=== PATIENT | female | born 1935 | race Caucasian/White ===

== ENCOUNTER 2016-08-01 13:41 | Inpatient (IN) | payer MEDICARE, OTHER ==
[~2016-08-01] VITALS: Ht 142.2 cm; Wt 62.1 kg
[~2016-08-01 13:41] MED LIST: HYDR-3138 PO; HYDR-3240 PO; HYDR-882 PO; HYDR25TA6 PO; LORA0.5T PO; OMEP-110 PO; OXYC-302 PO; TIZA4TAB9 PO; will bring a list
[2016-08-01] MEDS ORDERED: SODIUM CHLORIDE 0.9% 1,000 ML IV ONE (13:46)
[2016-08-01] MEDS ORDERED: HYDROmorphone 1 MG/ML, 1ML ONE ×2 (13:55→14:33)
[2016-08-01] MEDS ORDERED: ONDANSETRON 2MG/ML, 2ML ONE (13:55)
[2016-08-01] MEDS: HYDROmorphone 1 MG/ML, 1ML IVPush PRN ×2 (13:59→14:35)
[2016-08-01] MEDS ORDERED: SODIUM CHLORIDE FLUSH 10ML SYR IVF ONE (14:00)
[2016-08-01] MEDS ORDERED: ONDANSETRON 2MG/ML, 2ML IVPush ONE (14:00)
[2016-08-01 14:28] LABS: BLOOD UREA NITROGEN 20 mg/dL (7-18)
[2016-08-01 14:32] LABS: ASPARTATE AMINO TRANSFERASE 19 U/L (15-37)
[2016-08-01] MEDS ORDERED: ONDANSETRON 2MG/ML, 2ML IVPush PRN (16:00)
[2016-08-01] MEDS ORDERED: ENALAPRILAT 1.25 MG/ML, 2ML IVPush PRN (16:00)
[2016-08-01] MEDS: morphine SULFATE 10 MG/ML, 1ML IVPush PRN ×2 (17:18→21:15)
[2016-08-01] MEDS: LACTATED RINGERS 1,000 ML IV SCH (17:19)
[2016-08-01 18:07] VITALS: BP 186/85
[2016-08-01 18:20] VITALS: BP 145/78
[2016-08-01 19:01] VITALS: BP 151/78
[2016-08-01] MEDS: FAMOTIDINE 20 MG/2 ML IVPush SCH (21:00)
[2016-08-02 00:20] VITALS: BP 152/96
[2016-08-02] MEDS: morphine SULFATE 10 MG/ML, 1ML IVPush PRN ×3 (01:00→05:10)
[2016-08-02] MEDS: LACTATED RINGERS 1,000 ML IV SCH (02:53)
[2016-08-02 05:50] LABS: BLOOD UREA NITROGEN 15 mg/dL (7-18)
[2016-08-02] MEDS ORDERED: FENTANYL PF 250 MCG/5ML ONE (07:34)
[2016-08-02] MEDS ORDERED: MIDAZOLAM 1 MG/ML, 2ML ONE (07:34)
[2016-08-02] MEDS ORDERED: PROPOFOL 10 MG/ML, 20ML ONE (08:04)
[2016-08-02] MEDS ORDERED: EPHEDRINE 50 MG/ML, 1ML ONE (08:04)
[2016-08-02] MEDS ORDERED: DEXAMETHASONE 4 MG/ML, 1ML ONE (08:04)
[2016-08-02] MEDS ORDERED: ONDANSETRON 2MG/ML, 2ML ONE (08:04)
[2016-08-02] MEDS ORDERED: hydrALAzine 20 MG/ML, 1ML IV PRN (09:00)
[2016-08-02] MEDS ORDERED: ACETAMINOPHEN 325 MG TABLET PO PRN (09:00)
[2016-08-02] MEDS ORDERED: EPHEDRINE 50 MG/ML, 1ML IVPush PRN (09:00)
[2016-08-02] MEDS ORDERED: ONDANSETRON 2MG/ML, 2ML IVPush PRN (09:00)
[2016-08-02] MEDS ORDERED: PROMETHAZINE 25 MG/ML, 1ML IV PRN (09:00)
[2016-08-02] MEDS ORDERED: FENTANYL PF 100 MCG/2ML IV PRN (09:00)
[2016-08-02] MEDS ORDERED: HYDROmorphone 1 MG/ML, 1ML IV PRN (09:00)
[2016-08-02] MEDS ORDERED: ALBUTEROL SULFATE 2.5 MG/3 ML NPPB PRN (09:00)
[2016-08-02] MEDS ORDERED: MEPERIDINE/PF 25MG/0.5ML IVPush PRN (09:00)
[2016-08-02] MEDS ORDERED: OXYcodone 5 MG/5 ML ORAL.SOL UDC PO PRN (09:00)
[2016-08-02] MEDS: FAMOTIDINE 20 MG/2 ML IVPush SCH ×2 (09:00→20:59)
[2016-08-02] MEDS ORDERED: METOPROLOL 1 MG/ML, 5ML IV PRN (09:00)
[2016-08-02] MEDS ORDERED: MIDAZOLAM 1 MG/ML, 2ML IV PRN (09:00)
[2016-08-02] MEDS ORDERED: LABETALOL 5MG/ML, 20ML IV PRN (09:00)
[2016-08-02] MEDS ORDERED: OXYcodone 5 MG/5 ML ORAL.SOL UDC ONE (09:08)
[2016-08-02] MEDS ORDERED: ACETAMINOPHEN 650 MG/20.3 ML UDC ONE (09:08)
[2016-08-02] MEDS ORDERED: FENTANYL PF 100 MCG/2ML ONE (09:13)
[2016-08-02] MEDS ORDERED: POTASSIUM CHLORIDE 20 MEQ TAB.ER.PRT PO ONE (11:00)
[2016-08-02 13:45] VITALS: BP 98/54
[2016-08-02 14:24] VITALS: BP 101/74
[2016-08-02] MEDS: HYDROcodone/APAP 5/325 TABLET PO PRN ×2 (16:30→23:07)
[2016-08-02 16:32] VITALS: BP 154/93
[2016-08-02] MEDS: CEFAZOLIN PMX 1GM/50ML 50 ML IV SCH (17:01)
[2016-08-02 18:51] VITALS: BP 130/75
[2016-08-03] MEDS: CEFAZOLIN PMX 1GM/50ML 50 ML IV SCH ×2 (00:25→08:31)
[2016-08-03 00:28] VITALS: BP 133/74
[2016-08-03] MEDS: ENOXAPARIN 40 MG/0.4 ML SQ SCH (05:34)
[2016-08-03 06:04] LABS: BLOOD UREA NITROGEN 11 mg/dL (7-18)
[2016-08-03 06:38] VITALS: BP 138/70
[2016-08-03] MEDS: FAMOTIDINE 20 MG TABLET PO SCH ×2 (09:00→19:58)
[2016-08-03] MEDS: HYDROcodone/APAP 5/325 TABLET PO PRN ×2 (10:17→14:54)
[2016-08-03 14:25] VITALS: BP 124/60
[2016-08-03 18:32] VITALS: BP 133/93
[2016-08-03] MEDS: LORazepam 2 MG/ML, 1ML IVPush PRN (19:57)
[2016-08-04] MEDS: LORazepam 2 MG/ML, 1ML IVPush PRN ×2 (01:14→06:11)
[2016-08-04 01:19] VITALS: BP 154/94
[2016-08-04] MEDS: morphine SULFATE 10 MG/ML, 1ML IVPush PRN (01:22)
[2016-08-04] MEDS: ENOXAPARIN 40 MG/0.4 ML SQ SCH (06:14)
[2016-08-04 06:36] VITALS: BP 149/98
[2016-08-04] MEDS: FAMOTIDINE 20 MG TABLET PO SCH (09:00)
[2016-08-04] MEDS ORDERED: ENOX40SY4 SQ (10:10)
[2016-08-04] MEDS ORDERED: HYDR-3240 PO (10:10)
[2016-08-04] MEDS ORDERED: TRAM50TA2 PO (10:10)
[2016-08-04] MEDS ORDERED: FAMO20TA7 PO (10:10)
[2016-08-04] MEDS ORDERED: LACTULOSE 20 GM/30 ML UDC PO PRN (11:00)
[2016-08-04 13:42] VITALS: BP 115/74
[2016-08-04 16:14] VITALS: BP 166/99
== END 2016-08-04 16:18 | DRG 482 ==
LOC: ED 15:34 → 4NOR 15:35 → ED 16:05 → 4NOR 08-03 20:03
PROVIDERS: ADMIT Hospitalist; ATTEND Hospitalist
PROC: 0T9B70Z Drainage of Bladder with Drainage Device, Via Natural or Artificial Opening (ICD-10-PCS; 2016-08-02)
PROC: 0QS736Z Reposition Left Upper Femur with Intramedullary Internal Fixation Device, Percutaneous Approach (ICD-10-PCS; principal; 2016-08-02 07:30)
DX: S72.142A Displaced intertrochanteric fracture of left femur, initial encounter for closed fracture (principal); I10 Essential (primary) hypertension; D64.9 Anemia, unspecified; E87.6 Hypokalemia; F17.200 Nicotine dependence, unspecified, uncomplicated; F41.9 Anxiety disorder, unspecified; M51.36 Other intervertebral disc degeneration, lumbar region; W01.0XXA Fall on same level from slipping, tripping and stumbling without subsequent striking against object, initial encounter; Y93.89 Activity, other specified; Y92.89 Other specified places as the place of occurrence of the external cause; Z82.49 Family history of ischemic heart disease and other diseases of the circulatory system; Z88.5 Allergy status to narcotic agent; Z79.899 Other long term (current) drug therapy
CPT/HCPCS: 36415; 71010; 76000; 80048; 80053; 81001; 85025; 85610; 85730; 87086; 93005; 96361; 96374; 96375; C1713; J0690; J1100; J1170; J1650; J2250; J2405; J2704; J3010; J2060; J2270; J7030; J7120; S0028